=== PATIENT | male | born 1965 | race Caucasian/White ===

== ENCOUNTER 2023-09-09 12:59 | Inpatient (IN) | payer OTHER ==
[~2023-09-09] VITALS: Ht 180.3 cm; Wt 106.6 kg
[2023-09-09] MEDS ORDERED: SODIUM CHLORIDE 0.9% IV SCH (13:15)
[2023-09-09] MEDS ORDERED: SODIUM CHLORIDE FLUSH 10 ML SYR IV PRN (13:15)
[2023-09-09 13:34] LABS: BASOPHILS # (AUTO) 0.1 (0.0-0.1); BASOPHILS % 0.7 % (0.0-1.0); EOSINOPHILS # (AUTO) 0.1 (0.0-0.4); EOSINOPHILS % 1.6 % (0.0-6.0); HEMATOCRIT 39.7 % (38.2-49.6); HEMOGLOBIN 15.1 g/dL (14.0-18.0); LYMPHOCYTES # (AUTO) 1.6 (1.0-3.2); LYMPHOCYTES % 21.2 % (18.0-39.1); MEAN CORPUSCULAR HEMOGLOBIN 31.9 pg (28-32); MEAN CORPUSCULAR VOLUME 83.8 fL (81-99); MONOCYTES # (AUTO) 0.7 (0.2-0.8); MONOCYTES % 9.3 % (4.4-11.3); NEUTROPHILS % 66.9 % (38.7-80.0); PLATELET COUNT 89 x10e3/uL (140-360); RED BLOOD COUNT 4.74 x10e6/uL (4.3-5.7); RED CELL DISTRIBUTION WIDTH 12.1 % (11.7-14.4)
[2023-09-09 13:44] LABS: INR 0.92; PARTIAL THROMBOPLASTIN TIME 26.5 seconds (23.8-35.5); PROTHROMBIN TIME 12.6 seconds (11.9-14.5)
[2023-09-09] MEDS: ALBUTEROL/IPRATROPIUM 3 ML NEB NEB ONE (13:44)
[2023-09-09] MEDS: SODIUM CHLORIDE 0.9% 1000ML 1,000 ML IV ONE (13:48)
[2023-09-09] MEDS: LEVOFLOXACIN 750MG/D5W 150ML 150 ML IV SCH (13:48)
[2023-09-09 13:53] LABS: ALBUMIN/GLOBULIN RATIO 1.2 (0.8-2.0); ANION GAP 20.9 mmol/L (8-16); BILIRUBIN,TOTAL 1.6 mg/dL (0.2-1.2); CALCIUM 8.6 mg/dL (8.4-10.2); CREATININE, SERUM 0.66 mg/dL (0.72-1.25); POTASSIUM 3.9 mmol/L (3.5-5.1); TOTAL PROTEIN 7.4 g/dL (6.5-8.1)
[2023-09-09 13:59] LABS: TROPONIN I 0.001 ng/mL (0-0.300)
[2023-09-09] MEDS ORDERED: IOPAMIDOL 370 MG/ML 100 ML INFUS..BTL INJ ONE (14:24)
[2023-09-09] MEDS: DIAZEPAM INJ 5 MG/ML 2 ML IV ONE (15:55)
[2023-09-09] MEDS ORDERED: DIAZEPAM 5 MG TAB PO ONE (16:00)
[2023-09-09] MEDS ORDERED: SODIUM CHLORIDE 0.9% 1000ML 2,000 ML ONE (16:32)
[2023-09-09] MEDS: SODIUM CHLORIDE 0.9% IV SCH (16:33)
[2023-09-09] MEDS ORDERED: SODIUM CHLORIDE FLUSH 10 ML SYR INJ PRN (17:00)
[2023-09-09] MEDS: LORAZEPAM INJ 2 MG/ML VIAL IV PRN (18:54)
[2023-09-09] MEDS: ASPIRIN 81 MG CHEW TAB PO ONE (18:54)
[2023-09-09] MEDS: ONDANSETRON HCL INJ 2MG/ML 2ML 2 MG/ML VIAL IV PRN (18:54)
[2023-09-09 19:16] LABS: AMPHETAMINES SCREEN,URINE NEGATIVE (NEGATIVE); OPIATES SCREEN,URINE NEGATIVE (NEGATIVE); PHENCYCLIDINE SCREEN,URINE NEGATIVE (NEGATIVE)
[2023-09-09 19:17] LABS: BENZODIAZEPINES SCREEN,URINE NEGATIVE (NEGATIVE); CANNABINOIDS SCREEN,URINE NEGATIVE (NEGATIVE); METHADONE SCREEN, URINE NEGATIVE (NEGATIVE)
[2023-09-09 19:18] LABS: CLARITY,URINE CLEAR (CLEAR); COLOR,URINE YELLOW (YELLOW); PH,URINE 6 (5 - 7)
[2023-09-09 19:19] LABS: BILIRUBIN,URINE NEGATIVE (NEGATIVE); GLUCOSE, URINE NEGATIVE (NEGATIVE); KETONES,URINE 2+ (NEGATIVE); LEUKOCYTE ESTERASE ,URINE NEGATIVE (NEGATIVE); NITRITE,URINE NEGATIVE (NEGATIVE); PROTEIN,URINE DIPSTICK NEGATIVE (NEGATIVE); URINE UROBILINOGEN 1 mg/dL (0.2 - 1)
[2023-09-09 19:27] LABS: RBC,URINE 0-5 /HPF (0-5); WBC,URINE (MAN) 0-5 /HPF (0-5)
[2023-09-09 19:41] VITALS: PULSE 119; RESP 17; O2SAT 91
[2023-09-09] MEDS: ALBUTEROL/IPRATROPIUM 3 ML NEB NEB SCH (19:47)
[2023-09-09 20:39] VITALS: BP 151/86; PULSE 119; RESP 17; TEMP 98.3; O2SAT 93
[2023-09-09] MEDS ORDERED: METOPROLOL SUCC25 MG PO (20:45)
[2023-09-09] MEDS ORDERED: ADVAIR 250-501 EACH INH (20:45)
[2023-09-09] MEDS ORDERED: PROVENTIL HFA6.7 GM INH (20:45)
[2023-09-09 21:07] VITALS: BP 151/86; PULSE 119; RESP 21; TEMP 98.3; O2SAT 93
[2023-09-09 21:12] VITALS: BP 151/86; PULSE 119; RESP 21; TEMP 98.3; O2SAT 93
[2023-09-09] MEDS: LORAZEPAM INJ 2 MG/ML VIAL IV ONE (22:07)
[2023-09-09 22:43] LABS: TROPONIN I 0.004 ng/mL (0-0.300)
[2023-09-09 23:51] VITALS: PULSE 121; RESP 18; O2SAT 91
[2023-09-10] VITALS (17 sets, daily range): BP systolic 107–167; BP diastolic 62–100; PULSE 60–128; RESP 18–20; TEMP 97–99.5; O2SAT 90–99
[2023-09-10 06:47] LABS: BASOPHILS % 0.2 % (0.0-1.0); HEMATOCRIT 36.1 % (38.2-49.6); HEMOGLOBIN 13.4 g/dL (14.0-18.0); LYMPHOCYTES # (AUTO) 0.4 (1.0-3.2); LYMPHOCYTES % 8.5 % (18.0-39.1); MEAN CORPUSCULAR HGB CONC 37.1 g/dL (31-35); MEAN CORPUSCULAR VOLUME 86.2 fL (81-99); MONOCYTES # (AUTO) 0.5 (0.2-0.8); MONOCYTES % 9.7 % (4.4-11.3); NEUTROPHILS # (AUTO) 3.9 (2.1-6.9); NEUTROPHILS % 81.4 % (38.7-80.0); PLATELET COUNT 88 x10e3/uL (140-360); RED BLOOD COUNT 4.19 x10e6/uL (4.3-5.7); RED CELL DISTRIBUTION WIDTH 12.1 % (11.7-14.4); WHITE BLOOD COUNT 4.84 x10e3/uL (4.8-10.8)
[2023-09-10] MEDS ORDERED: MELATONIN 3 MG TAB PO PRN (08:00)
[2023-09-10] MEDS ORDERED: SIMETHICONE 80 MG CHEW PO PRN (08:00)
[2023-09-10] MEDS ORDERED: ALBUTEROL/IPRATROPIUM 3 ML NEB NEB PRN (08:00)
[2023-09-10] MEDS: THIAMINE HCL 100 MG TAB PO SCH (08:25)
[2023-09-10] MEDS: FOLIC ACID 1 MG TAB PO SCH (08:25)
[2023-09-10] MEDS: CHLORDIAZEPOXIDE HCL 25 MG CAP PO SCH (08:25)
[2023-09-10] MEDS: IBUPROFEN 600 MG TAB PO PRN (08:26)
[2023-09-10] MEDS: NICOTINE 21 MG/EA PATCH TOP SCH (08:27)
[2023-09-10 08:49] LABS: CREATINE KINASE 217 IU/L (30-200)
[2023-09-10 08:51] LABS: ALBUMIN 3.6 g/dL (3.5-5.0); ALBUMIN/GLOBULIN RATIO 1.1 (0.8-2.0); ANION GAP 16.6 mmol/L (8-16); BILIRUBIN,TOTAL 1.1 mg/dL (0.2-1.2); CALCIUM 8.6 mg/dL (8.4-10.2); CREATININE, SERUM 0.68 mg/dL (0.72-1.25); POTASSIUM 3.6 mmol/L (3.5-5.1); TOTAL PROTEIN 6.8 g/dL (6.5-8.1)
[2023-09-10 08:57] LABS: TROPONIN I < 0.001 ng/mL (0-0.300)
[2023-09-10 16:01] LABS: TROPONIN I 0.001 ng/mL (0-0.300)
[2023-09-10] MEDS: FAMOTIDINE 20 MG TAB PO SCH (16:38)
[2023-09-11] VITALS (19 sets, daily range): BP systolic 132–140; BP diastolic 86–108; PULSE 111–139; RESP 16–22; TEMP 97.7–98.9; O2SAT 92–98
[2023-09-11 07:21] LABS: BASOPHILS % 0.3 % (0.0-1.0); EOSINOPHILS # (AUTO) 0.1 (0.0-0.4); EOSINOPHILS % 0.8 % (0.0-6.0); HEMOGLOBIN 13.7 g/dL (14.0-18.0); LYMPHOCYTES # (AUTO) 1.4 (1.0-3.2); LYMPHOCYTES % 22.9 % (18.0-39.1); MEAN CORPUSCULAR HEMOGLOBIN 30.9 pg (28-32); MEAN CORPUSCULAR HGB CONC 34.3 g/dL (31-35); MEAN CORPUSCULAR VOLUME 90.3 fL (81-99); MONOCYTES # (AUTO) 0.5 (0.2-0.8); NEUTROPHILS # (AUTO) 4.3 (2.1-6.9); NEUTROPHILS % 67.7 % (38.7-80.0); PLATELET COUNT 108 x10e3/uL (140-360); RED BLOOD COUNT 4.43 x10e6/uL (4.3-5.7); RED CELL DISTRIBUTION WIDTH 12.9 % (11.7-14.4); WHITE BLOOD COUNT 6.28 x10e3/uL (4.8-10.8)
[2023-09-11] MEDS: LEVALBUTEROL HCL SOLN NEBU 0.63 MG/3 ML NEB INH PRN (07:23)
[2023-09-11] MEDS: IPRATROPIUM BROMIDE 0.02% 2.5 ML NEB NEB SCH (07:24)
[2023-09-11 07:36] LABS: ANION GAP 14.5 mmol/L (8-16); CALCIUM 8.8 mg/dL (8.4-10.2); CREATININE, SERUM 0.6 mg/dL (0.72-1.25); POTASSIUM 3.5 mmol/L (3.5-5.1)
[2023-09-11] MEDS: SODIUM CHLORIDE 0.45% 1,000 ML IV SCH (16:18)
[2023-09-11] MEDS: METOPROLOL TARTRATE 25 MG TAB PO SCH (16:18)
[2023-09-12] VITALS (11 sets, daily range): BP systolic 122–139; BP diastolic 81–89; PULSE 100–130; RESP 16–19; TEMP 97.4–98.8; O2SAT 93–97
[2023-09-12] MEDS ORDERED: SIMETHICONE80 MG PO (10:20)
[2023-09-12] MEDS ORDERED: CHLORDIAZEPOXID25 MG PO (10:20)
[2023-09-12] MEDS ORDERED: NICODERM CQ1 EAC2 TOP (10:20)
[2023-09-12] MEDS ORDERED: Folic Acid PO (10:20)
[2023-09-12] MEDS ORDERED: MELATONIN3 MG PO (10:20)
[2023-09-12] MEDS ORDERED: FAMOTIDINE20 MG PO (10:20)
[2023-09-12] MEDS ORDERED: B-1100 MG PO (10:20)
[2023-09-12] MEDS ORDERED: LOPRESSOR25 MG PO (10:20)
[2023-09-12] MEDS ORDERED: FOLIC ACID0.4 MG PO (10:23)
[2023-09-12] MEDS ORDERED: QUETIAPINE FUMARATE 25 MG TAB PO SCH (10:30)
== END 2023-09-12 11:41 | disposition home or self-care (01) | DRG 897 ==
LOC: ER 13:06 → ERHOLD 16:54 → MED/SURG3 20:28 → OBSVTOIN 09-11 15:08
PROVIDERS: ADMIT Internal Medicine; ATTEND Internal Medicine
PROC: HZ2ZZZZ Detoxification Services for Substance Abuse Treatment (ICD-10-PCS; principal; 2023-09-10)
DX: F10.221 Alcohol dependence with intoxication delirium (principal); J44.1 Chronic obstructive pulmonary disease with (acute) exacerbation; E87.20 Acidosis, unspecified; F17.210 Nicotine dependence, cigarettes, uncomplicated; Z88.8 Allergy status to other drugs, medicaments and biological substances; R09.02 Hypoxemia; Z11.52 Encounter for screening for COVID-19; Y90.6 Blood alcohol level of 120-199 mg/100 ml; K70.0 Alcoholic fatty liver; E66.9 Obesity, unspecified; Z68.32 Body mass index [BMI] 32.0-32.9, adult; F41.9 Anxiety disorder, unspecified
CPT/HCPCS: 36415; 71045; 71260; 80048; 80053; 80307; 80320; 81001; 82550; 83605; 83880; 84484; 85025; 85610; 85730; 87040; 87086; 87400; 93005; 94760; 94799; 99284; G0378; J2060; J2405; J3360; J3411; J7030; Q9967; U0002